=== PATIENT | male | born 1960 | race Caucasian/White ===

== ENCOUNTER → 2021-06-07 | Outpatient (CLI) | payer OTHER ==
[~2021-06-07] MED LIST: GADOBUTROL 10 MMOL/10 ML (GADAVIST) VIAL IV ONE
--- NOTE | 2021-06-07 11:58 | Diagnostic Imaging Report ---
PROCEDURE: MR imaging of the brain with and without contrast. TECHNIQUE: Multiplanar, multisequence MR imaging of the brain was performed with and without contrast. INDICATION: Previous abnormal MRI describing abnormal signal in the right cerebellum. COMPARISON: The prior exam is not available for comparison. FINDINGS: No abnormal intracranial signal or enhancement. Mild generalized parenchymal volume loss is age appropriate. No restricted water diffusion. No hemosiderin deposition or evidence of intracranial hemorrhage. Normal morphology including the major midline structures, sella, posterior fossa and cerebellar pontine angle. No hydrocephalus or extra-axial fluid collections. Normal intracranial flow voids. The orbits are negative. Paranasal sinuses and mastoids are clear. Normal bone marrow signal. IMPRESSION: 1. Age-appropriate MRI of the brain without and with IV contrast. No acute findings. 2. The reported blooming artifact in the right cerebellum on the prior exam is not reproduced on today's exam. The prior images are not available for comparison. Dictated by: Dictated on workstation # [id number]
== END ==
LOC: RAD 11:00
DX: R94.02 Abnormal brain scan (principal)
CPT/HCPCS: 70553